=== PATIENT | male | born 1965 | race Caucasian/White ===

== ENCOUNTER 2021-05-30 16:10 | Emergency (ER) | payer BC ==
[2021-05-30] MEDS ORDERED: CASIRIVIMAB/IMDEVIMAB 10 ML in SODIUM CHLORIDE 100 ML IVPB ONE (16:21)
[2021-05-30 16:49] VITALS: BP 134/91; TEMP 98; BMI 33.0
[2021-05-30 20:46] VITALS: PULSE 82
== END 2021-05-30 20:47 | disposition home or self-care (01) ==
LOC: JCOVINFU 16:10 → JER 16:10 → JCOVINFU 20:47
PROC: 3E033GC Introduction of Other Therapeutic Substance into Peripheral Vein, Percutaneous Approach (ICD-10-PCS; principal; 2021-05-30)
DX: U07.1 COVID-19 (principal)
CPT/HCPCS: 96365; 99284-25